=== PATIENT | female | born 1975 | race African-American/Black ===

== ENCOUNTER 2016-12-16 22:31 | Emergency (ER) | payer OTHER ==
[2016-12-16 22:52] VITALS: BP 124/80; PULSE 96; TEMP 98.7; BMI 27.1
[2016-12-16] MEDS ORDERED: PANTOPRAZOLE SODIUM 40 MG in SODIUM CHLORIDE 100 ML IVPB ONE (23:12)
[2016-12-16] MEDS ORDERED: SODIUM CHLORIDE 500 ML IV STA (23:12)
[2016-12-16] MEDS ORDERED: ONDANSETRON 4 MG/2 ML VIAL IVPB ONE (23:12)
[2016-12-16] MEDS ORDERED: FAMOTIDINE 20 MG/50 ML IVPB 50 ML IVPB ONE ×2 (23:12→23:44)
[2016-12-16] MEDS ORDERED: ONDANSETRON 4 MG/2 ML VIAL ONE (23:44)
[2016-12-16] MEDS ORDERED: PANTOPRAZOLE SODIUM 100 ML IVPB ONE (23:44)
[2016-12-16 23:50] LABS: URINE APPEARANCE CLEAR; URINE BILIRUBIN NEGATIVE (NEGATIVE); URINE BLOOD 1+ (NEGATIVE); URINE COLOR STRAW; URINE GLUCOSE (UA) NEGATIVE (NEGATIVE); URINE KETONE 1+ (NEGATIVE); URINE NITRITE NEGATIVE (NEGATIVE); URINE PROTEIN NEGATIVE (NEGATIVE); URINE UROBILINOGEN NEGATIVE mg/dL (0.2-1.0)
[2016-12-16 23:58] LABS: URINE LEUK ESTERASE 1+ (NEGATIVE)
[2016-12-17] MEDS ORDERED: PANTOPRAZOLE SODIUM 100 ML IVPB ONE (00:02)
[2016-12-17] MEDS ORDERED: FAMOTIDINE 20 MG/50 ML IVPB 50 ML IVPB ONE (00:02)
[2016-12-17] MEDS ORDERED: ONDANSETRON 4 MG/2 ML VIAL ONE (00:02)
[2016-12-17 00:04] LABS: CALCIUM OXALATE CRYSTALS RARE /hpf (NONE SEEN); URINE BACTERIA RARE /hpf (NONE SEEN); URINE RBC 1 /hpf (0-3); URINE WBC 2 /hpf (3-5)
[2016-12-17 00:12] LABS: BASOPHIL 0.4 % (0-2.0); EOSINOPHIL 5.5 % (0-4.5); MCH 29.9 pg (25.7-33.7); MCHC 33.2 g/dl (32.0-36.0); MEAN CELL VOLUME 90.1 fl (80-96); MEAN PLT VOLUME 8.6 fl (7.5-11.1); NEUTROPHILS 54.3 % (42.8-82.8); PLATELET COUNT 231 K/MM3 (134-434); RDW 14.1 % (11.6-15.6); WHITE BLOOD COUNT 4.9 K/mm3 (4.0-10.0)
[2016-12-17 00:38] LABS: ALBUMIN 3.5 g/dl (3.4-5.0); AMYLASE 64 U/L (25-115); ANION GAP 9 (8-16); BILIRUBIN,TOTAL 0.6 mg/dL (0.2-1.0); CALCIUM 8.8 mg/dL (8.5-10.1); CO2 23 mmol/L (21-32); CREATININE 0.7 mg/dL (0.55-1.02); GLUCOSE,RANDOM 88 mg/dL (74-106); SGPT/ALT 15 U/L (12-78)
[2016-12-17 00:39] LABS: ALK PHOS 50 U/L (45-117); TOT PROT 7.1 g/dl (6.4-8.2)
[2016-12-17 00:47] LABS: SGOT/AST 18 U/L (15-37)
--- NOTE | 2016-12-17 01:14 | PDOC ---
History of Present Illness - General Chief Complaint: Pain Stated Complaint: CHEST TIGHTNESS Time Seen by Provider: 12/16/16 23:06 History Source: Patient Exam Limitations: No Limitations - History of Present Illness Initial Comments: 12/17/16 01:05 41yo Female patient w/ PmHx: IBS, Lactose intolerance, anxiety presents to ED c/ o fluttering feeling in chest, followed by SOB and stomach w/ funny feeling. Patient states symptoms began around 930pm last night. While in ED patient reports symptoms improved. She denies n/v/d, back pain, CP, diff breathing, fever, cough, congestion, or any other complaints at this time. LNMP: Dec 02. Severity: moderate Modifying Factors: worse with: cold therapy, eating, immobilization, medication , movement, rest, other Associated Symptoms: denies: denies symptoms, chest pain, cough, diaphoresis, fever/chills, headaches, loss of appetite, malaise, nausea/vomiting, rash, seizure, shortness of breath, syncope, weakness, other Past History - Travel Traveled outside of the country in the last 30 days: No Close contact w/someone who was outside of country & ill: No - Past Medical History Allergies/Adverse Reactions: Allergies Allergy/AdvReac Type Severity Reaction Status Date / Time No Known Allergies Allergy Verified 12/16/16 22:48 Home Medications: Ambulatory Orders Escitalopram Oxalate [Lexapro] 10 mg PO DAILY #30 tablet 05/05/12 Ranitidine [Zantac -] 150 mg PO BID #30 tablet 12/17/16 Thyroid Disease: Yes - Immunization History Immunization Up to Date: No - Suicide/Smoking/Psychosocial Hx Smoking Status: No Smoking History: Current every day smoker Have you smoked in the past 12 months: No Number of Cigarettes Smoked Daily: 0 Information on smoking cessation initiated: No Hx Alcohol Use: No Drug/Substance Use Hx: No Substance Use Type: None Review of Systems - Review of Systems Able to Perform ROS?: Yes Is the patient limited [place] proficient: No Constitutional: No: Chills, Fever HEENTM: Yes: Throat Pain. No: Throat Swelling, Difficulty Swallowing, Mouth Swelling Respiratory: Yes: Shortness of Breath. No: Cough, Wheezing Cardiac (ROS): Yes: Irregular Heart Rate. No: Chest Pain, Lightheadedness, Palpitations, Syncope, Chest Tightness ABD/GI: No: Diarrhea, Nausea, Poor Appetite, Poor Fluid Intake, Vomiting, Abdominal cramping All Other Systems: Reviewed and Negative *Physical Exam - Vital Signs Last Vital Signs Temp Pulse Resp BP Pulse Ox 98.7 F 96 H 14 124/80 100 12/16/16 22:48 12/16/16 22:48 12/16/16 22:48 12/16/16 22:48 12/16/16 22:48 - Physical Exam General Appearance: Yes: Nourished, Appropriately Dressed. No: Apparent Distress, Mild Distress, Moderate Distress, Severe Distress Neck: positive: Trachea midline, Supple. negative: Lymphadenopathy (R), Lymphadenopathy (L) Respiratory/Chest: positive: Lungs Clear, Normal Breath Sounds. negative: Chest Tender, Respiratory Distress, Accessory Muscle Use, Labored Respiration, Rapid RR, Rhonchi, Stridor, Wheezing Cardiovascular: positive: Regular Rhythm, Regular Rate Gastrointestinal/Abdominal: positive: Soft, Increased Bowel Sounds. negative: Distended, Guarding, Rebound, Tenderness Musculoskeletal: positive: Normal Inspection. negative: CVA Tenderness Extremity: positive: Normal Capillary Refill, Normal Inspection, Normal Range of Motion. negative: Pedal Edema, Swelling, Calf Tenderness, Erythema, Inflammation Integumentary: positive: Normal Color, Dry, Warm Neurologic: positive: tile layer drainage II-XII NML intact, Fully Oriented, Alert, Normal Mood/ Affect, Normal Response, Motor Strength 5/5 ED Treatment Course - LABORATORY CBC & Chemistry Diagram: 12/16/16 23:59 12/16/16 23:59 - ADDITIONAL ORDERS Additional order review: Laboratory Results 12/16/16 12/16/16 23:59 23:45 Sodium 137 Potassium 3.8 Chloride 105 Carbon Dioxide 23 D Anion Gap 9 BUN 11 D Creatinine 0.7 D Creat Clearance w eGFR > 60 Random Glucose 88 Calcium 8.8 Total Bilirubin 0.6 D AST 18 ALT 15 Alkaline Phosphatase 50 Total Protein 7.1 Albumin 3.5 Total Amylase 64 Lipase 95 Urine Color Straw Urine Appearance Clear Urine pH 6.0 D Urine Protein Negative Urine Glucose (UA) Negative Urine Ketones 1+ H Urine Blood 1+ H Urine Nitrite Negative Urine Bilirubin Negative Urine Urobilinogen Negative Urine RBC 1 Urine WBC 2 Ur Epithelial Cells Rare Calcium Oxalate Crystal Rare Urine Bacteria Rare Urine HCG, Qual Negative 12/16/16 23:59 RBC 3.81 MCV 90.1 MCHC 33.2 RDW 14.1 MPV 8.6 D Neutrophils % 54.3 D Lymphocytes % 28.7 D Monocytes % 11.1 H Eosinophils % 5.5 H Basophils % 0.4 - Medications Given in the ED: ED Medications Discontinued Medications Generic Name Dose Route Start Last Admin Trade Name Fili PRN Reason Stop Dose Admin Pantoprazole Sodium 40 mg/ 100 mls @ 200 mls/hr 12/16/16 23:12 12/17/16 00:04 Sodium Chloride IVPB 12/16/16 23:41 200 mls/hr ONCE ONE Administration Famotidine/Sodium Chloride 50 mls @ 100 mls/hr 12/16/16 23:12 12/17/16 00:04 Pepcid 20 Mg Premixed Ivpb - IVPB 12/16/16 23:41 100 mls/hr ONCE ONE Administration Sodium Chloride 500 mls @ 500 mls/hr 12/16/16 23:12 12/17/16 00:05 Normal Saline - IV 12/17/16 00:11 500 mls/hr ASDIR STA Administration Ondansetron HCl 4 mg 12/16/16 23:12 12/17/16 00:38 Zofran Injection IVPB 12/16/16 23:13 Not Given ONCE ONE *DC/Admit/Observation/Transfer Diagnosis at time of Disposition: Gastroesophageal reflux disease Qualifiers: Esophagitis presence: without esophagitis Qualified Code(s): K21.9 - Gastro- esophageal reflux disease without esophagitis - Discharge Dispostion Disposition: HOME Condition at time of disposition: Stable Admit: No - Prescriptions Prescriptions: Ranitidine [Zantac -] 150 mg PO BID #30 tablet - Patient Instructions Printed Discharge Instructions: DI for Gastroesophageal Reflux Disease (GERD), GERD Diet Additional Instructions: Follow up with your front end drupal developer as discussed, or call Dr. Galvez to schedule appointment for evaluation. Take medications as prescribed. Return if any concerns for further evaluation. Print Language: LATVIAN
--- NOTE | 2016-12-17 09:12 | EKG ---
Test Reason : Blood Pressure : / mmHG Vent. Rate : 087 BPM Atrial Rate : 087 BPM P-R Int : 140 ms QRS Dur : 080 ms QT Int : 378 ms P-R-T Axes : 070 068 042 degrees QTc Int : 454 ms NORMAL SINUS RHYTHM possible left atrial enlargement Confirmed by ANGELLA GALVAN MD ([id number]) on 12/17/2016 9:12:38 AM Referred By: Confirmed By:ANGELLA GALVAN MD
[2016-12-17 12:56] LABS: THYROID STIMULATING HORMONE 1.38 uIU/ml (0.358-3.74)
== END 2016-12-17 04:16 | disposition home or self-care (01) ==
LOC: JER 22:31
PROC: 3E033GC Introduction of Other Therapeutic Substance into Peripheral Vein, Percutaneous Approach (ICD-10-PCS; principal; 2016-12-16)
PROC: 3E033GC Introduction of Other Therapeutic Substance into Peripheral Vein, Percutaneous Approach (ICD-10-PCS; 2016-12-16)
DX: K21.9 Gastro-esophageal reflux disease without esophagitis (principal)
CPT/HCPCS: 36415; 76705-TC; 80053; 81003; 81015; 82150; 83690; 84443; 84703; 85025; 93005; 93010; 99283-25

== ENCOUNTER 2016-12-28 09:50 | Day surgery (SDC) | payer OTHER ==
[2016-12-28 10:46] VITALS: BMI 27.1
[2016-12-28] MEDS ORDERED: PROPOFOL 20 ML ONE (11:22)
[2016-12-28 11:54] VITALS: TEMP 98.7
[2016-12-28 13:15] VITALS: BP 128/72; PULSE 67
--- NOTE | 2016-12-29 12:57 | PATH ---
Surgical Pathology Report Patient Name: LISA MELCHOR [facility]. Rec. #: [id number] /Age/Gender: 1975 (Age: 41) / F Account: [id number] Location: [facility]-ENDOSCOPY Taken: 12/28/2016 Received: 12/28/2016 Reported: 12/29/2016 Physicians: Rafael Saldaña M.D. Specimen(s) Received A: BX DUODENUM B: BX BODY Clinical History Persistent heart burn despite H brenda Erythema body Final Diagnosis A. DUODENUM, BIOPSY: DUODENAL MUCOSA WITH NO PATHOLOGIC CHANGES. NO HISTOLOGIC EVIDENCE OF GLUTEN SENSITIVE ENTEROPATHY (CELIAC SPRUE) IDENTIFIED. B. STOMACH, BODY, BIOPSY: GASTRIC FUNDIC MUCOSA WITH NO PATHOLOGIC CHANGES. IMMUNOSTAIN FOR H. PYLORI IS NEGATIVE. Electronically Signed Aldair Collazo M.D. Gross Description A. Received in formalin, labeled "biopsy duodenum" are 2 wells, irregular portions of soft tissue measuring 0.3 and 0.4 cm. in greatest dimension. The specimens are submitted in toto in one cassette. B. Received in formalin, labeled "biopsy body" is a wells, irregular portion of soft tissue measuring 0.6 cm. in greatest dimension. The specimen is submitted in toto in one cassette. DL/12/28/2016 saudi12/28/2016
== END 2016-12-28 13:15 | disposition home or self-care (01) ==
LOC: JASU-ENDO 09:50
PROVIDERS: ATTEND Internal Medicine Gastroenterology
PROC: 0DB68ZX Excision of Stomach, Via Natural or Artificial Opening Endoscopic, Diagnostic (ICD-10-PCS; 2016-12-28)
PROC: 0DB98ZX Excision of Duodenum, Via Natural or Artificial Opening Endoscopic, Diagnostic (ICD-10-PCS; principal; 2016-12-28 10:45)
DX: K21.9 Gastro-esophageal reflux disease without esophagitis (principal)
CPT/HCPCS: 84703; 88305-TC; 88342-TC

== ENCOUNTER 2017-01-04 09:28 | Day surgery (SDC) | payer OTHER ==
[2017-01-03 15:00] VITALS: BMI 27.1
[2017-01-04] MEDS ORDERED: LIDOCAINE HCL/PF 2% SDV 5ML VIAL ONE (11:08)
[2017-01-04] MEDS ORDERED: PROPOFOL 20 ML ONE ×3 (11:08→11:24)
[2017-01-04 11:51] VITALS: TEMP 98
[2017-01-04 12:52] VITALS: BP 101/70; PULSE 65
--- NOTE | 2017-01-05 11:23 | PATH ---
Surgical Pathology Report Patient Name: LISA MELCHOR [facility]. Rec. #: [id number] /Age/Gender: 1975 (Age: 41) / F Account: [id number] Location: [facility]-ENDOSCOPY Taken: 01/04/2017 Received: 01/04/2017 Reported: 01/05/2017 Physicians: Rafael Saldaña M.D. Specimen(s) Received BX TERMINAL ILEUM Clinical History Constipation Nodular mucosa terminal ileum, redundant sigmoid Final Diagnosis TERMINAL ILEUM, BIOPSY: SMALL INTESTINAL MUCOSA WITH FOLLICULAR HYPERPLASIA OF MUCOSA ASSOCIATED LYMPHOID TISSUE. NO ACTIVE INFLAMMATION IDENTIFIED. Comment: The findings may indicate some form of antigenic stimulation to the GI tract. Electronically Signed Aldair Collazo M.D. Gross Description Received in formalin, labeled "biopsy terminal ileum" are 3 wells, irregular portions of soft tissue ranging from 0.3-0.4 cm. in greatest dimension. The specimens are submitted in toto in one cassette. 01/04/201701/04/2017
== END 2017-01-04 12:52 | disposition home or self-care (01) ==
LOC: JASU-ENDO 09:28
PROVIDERS: ATTEND Internal Medicine Gastroenterology
PROC: 0DJD8ZZ Inspection of Lower Intestinal Tract, Via Natural or Artificial Opening Endoscopic (ICD-10-PCS; principal; 2017-01-04 10:00)
DX: K59.00 Constipation, unspecified (principal)
CPT/HCPCS: 84703; 88305-TC

== ENCOUNTER 2018-03-09 15:43 | Emergency (ER) | payer OTHER ==
--- NOTE | 2018-03-09 16:02 | PDOC ---
Rapid Medical Evaluation Time Seen by Provider: 03/09/18 15:56 Medical Evaluation: Allergies Allergy/AdvReac Type Severity Reaction Status Date / Time jimenez flavor Allergy Verified 01/03/17 15:00 03/09/18 15:56 I have performed a brief in-person evaluation of this patient The patient presents with a chief complaint of: 2-3 months of pinkish fleshy vaginal discharge today with 1 day of L sided-lower pelvic pain/pressure. She has an Esure for contraception and is concerned for ectopic , no h/ o ectopic LMP Feb 21 I have ordered the following: UCG, UA The patient will proceed to the ED for further evaluation Discharge Disposition - Diagnosis Pelvic pain - Referrals - Patient Instructions - Post Discharge Activity
[2018-03-09 16:03] VITALS: BP 117/57; PULSE 94; TEMP 98.6; BMI 25.0
--- NOTE | 2018-03-09 16:55 | PDOC ---
History of Present Illness - General Chief Complaint: Pain Stated Complaint: PAIN Time Seen by Provider: 03/09/18 15:56 - History of Present Illness Initial Comments: 03/09/18 16:52 42 yo , aborta 5, LMP 01/21/18, with h/o GERD who p/w pelvic pain. Patient reports 1 week of irregular, pink, vaginal discharge "spotting," noticed when urinating or defecating. Denies hematuira, or BPR. Also endorses one month of sharp, shooting, intermittent, pelvic pain, and dyspareurnia. Patient denies h/ o similar symptoms. 1-2 months intermittent lightheadedness, with no identifiable triggers or alleviators, lasting for seconds to minutes and resolving. Patient denies vision change, LOC, OVIEDO, N/V, F/C, CP, SOB, urinary complaints, BPR, hematuria, diarrhea, constipation, weakness, sensory changes. PMHx: as noted above. ROS: as noted SHx: Denies tobacco use, Etoh, IVDA. Sexually active with one sexual partner. Recently treated for BV with Flagyl ( 03/06/18). Patient with essure contraception. Allergies: NKDA Past History - Past Medical History Allergies/Adverse Reactions: Allergies Allergy/AdvReac Type Severity Reaction Status Date / Time jimenez flavor Allergy Verified 03/09/18 15:57 Home Medications: Ambulatory Orders Escitalopram Oxalate [Lexapro -] 10 mg PO DAILY #30 tablet 05/05/12 Ibuprofen [Advil -] 400 mg PO PRN 12/28/16 Omeprazole 40 mg PO DAILY 01/03/17 metroNIDAZOLE [Flagyl -] 250 mg PO TID 01/03/17 Clotrimazole 14 gm TP ONCE #1 cream..g. 03/09/18 COPD: No GI Disorders: Yes Thyroid Disease: Yes - Immunization History Immunization Up to Date: No - Suicide/Smoking/Psychosocial Hx Smoking Status: No Smoking History: Never smoked Have you smoked in the past 12 months: No Number of Cigarettes Smoked Daily: 0 Hx Alcohol Use: No Drug/Substance Use Hx: No Substance Use Type: None Review of Systems - Review of Systems Comments:: 03/09/18 16:53 GENERAL/CONSTITUTIONAL: No fever or chills. No weakness. HEAD, EYES, EARS, NOSE AND THROAT: No change in vision. No ear pain or discharge. No sore throat. CARDIOVASCULAR: No chest pain or shortness of breath RESPIRATORY: No cough, wheezing, or hemoptysis. GASTROINTESTINAL: No nausea, vomiting, diarrhea or constipation. GENITOURINARY: + Pelvic pain, and dyspareurnia. No dysuria, frequency, or change in urination. MUSCULOSKELETAL: No joint or muscle swelling or pain. No neck or back pain. SKIN: No rash NEUROLOGIC: No headache, vertigo, loss of consciousness, or change in strength/ sensation. ENDOCRINE: No increased thirst. No abnormal weight change HEMATOLOGIC/LYMPHATIC: No anemia, easy bleeding, or history of blood clots. ALLERGIC/IMMUNOLOGIC: No hives or skin allergy. *Physical Exam - Vital Signs Last Vital Signs Temp Pulse Resp BP Pulse Ox 98.6 F 94 H 16 117/57 L 100 03/09/18 15:59 03/09/18 15:59 03/09/18 15:59 03/09/18 15:59 03/09/18 15:59 - Physical Exam Comments: 03/09/18 16:53 GENERAL: Awake, alert, and fully oriented, in no acute distress HEAD: No signs of trauma, normocephalic, atraumatic EYES: PERRLA, EOMI, sclera anicteric, conjunctiva clear ENT: Hearing grossly normal, nares patent, oropharynx clear without exudates. Moist mucosa NECK: Normal ROM, supple, no lymphadenopathy, JVD, or masses LUNGS: No distress, speaks full sentences, clear to auscultation bilaterally HEART: Regular rate and rhythm, normal S1 and S2, no murmurs, rubs or gallops, peripheral pulses normal and equal bilaterally. ABDOMEN: + L>R lower abdominal ttp, and suprpaubic ttp. Soft, nontender, normoactive bowel sounds. No guarding, no rebound. No masses GENITOURINARY: Nml appearing external genitalia. thick, white, curd like discharge, with absent vaginal blood in vault. Absent CMT on BM exam. Absent adenexal ttp. Absent lesions. Cervical os closed. EXTREMITIES : Normal inspection, Normal range of motion, no edema. No clubbing or cyanosis. SKIN: Warm, Dry, normal turgor, no rashes or lesions noted Moderate Sedation - Procedure Monitoring Vital Signs: Procedure Monitoring Vital Signs Temperature 98.6 F 03/09/18 15:59 Pulse Rate 94 H 03/09/18 15:59 Respiratory Rate 16 03/09/18 15:59 Blood Pressure 117/57 L 03/09/18 15:59 O2 Sat by Pulse Oximetry (%) 100 03/09/18 15:59 ED Treatment Course - LABORATORY CBC & Chemistry Diagram: 03/09/18 17:44 03/09/18 17:44 Medical Decision Making - Medical Decision Making 03/09/18 17:19 42 yo , aborta 5, LMP 01/21/18, with h/o GERD who p/w pelvic pain. VSS, AF, A&OX3. + Left lower abdominal ttp. + thick curd white vaginal discharge n physical exam ( chaperoned by Nurse Linda Juarez). Will consider related abdominal pain (ectopic , implantation bleeding), threatened infectious etiology ( PID, TOA, BV, cystitis), adenexal disorders ( ovarian cyst rupture, ovarian), torsion), DUB, diverticulitis, colitis. ED Course: CBC, CMP, UA, UCx, HCG Fluconazole 150 mg PO 03/09/18 18:21 UA: Neg HCG: Neg 03/09/18 19:09 CBC, CMP: Unremarkable HCG: Neg UA: Neg 03/09/18 21:07 TVUS: No evidence of torsion. 03/09/18 21:08 Pt. pain improved. Stable for d/c with return precautions. Advised to f/u with Quality Manager. *DC/Admit/Observation/Transfer Diagnosis at time of Disposition: Pelvic pain - Prescriptions Prescriptions: Clotrimazole 14 gm TP ONCE #1 cream..g. - Referrals Referrals: Dirk Osman MD [Primary Care Provider] - Emily Campbell MD [Staff Physician] - - Patient Instructions Printed Discharge Instructions: DI for Vaginal Yeast Infection, DI for Uterine Fibroids Additional Instructions: Please return to the emergency department with any new or worsening symptoms or concerns. Please follow up with your primary care physician within 72 hours. Please follow up with Quality Manager within 72 hours. - Post Discharge Activity - Attestations Physician Attestion: 03/09/18 16:53 I attest to the information provided in this note.
[2018-03-09 17:06] LABS: URINE APPEARANCE CLEAR; URINE BILIRUBIN NEGATIVE (<2.0 mg/dL); URINE COLOR STRAW; URINE GLUCOSE (UA) NEGATIVE (NEGATIVE); URINE KETONE 1+ (NEGATIVE); URINE LEUK ESTERASE NEGATIVE (NEGATIVE); URINE NITRITE NEGATIVE (NEGATIVE); URINE PROTEIN NEGATIVE (NEGATIVE); URINE UROBILINOGEN NEGATIVE mg/dL (0.2-1.0)
[2018-03-09] MEDS ORDERED: FLUCONAZOLE 50 MG TABLET PO ONE (18:20)
[2018-03-09 18:26] LABS: BASO % 0.4 % (0-2.0); EOS % 4.7 % (0-4.5); HEMATOCRIT 32.6 % (32.4-45.2); HEMOGLOBIN 10.7 GM/dL (10.7-15.3); LYMPH % 41.5 % (8-40); MCH 27.5 pg (25.7-33.7); MCHC 32.8 g/dl (32.0-36.0); MEAN CELL VOLUME 83.9 fl (80-96); MEAN PLT VOLUME 8.7 fl (7.5-11.1); MONO % 8.2 % (3.8-10.2); NEUT % 45.2 % (42.8-82.8); PLATELET COUNT 305 K/MM3 (134-434); RBC 3.88 M/mm3 (3.60-5.2); RDW 17.5 % (11.6-15.6); WHITE BLOOD COUNT 5.2 K/mm3 (4.0-10.0)
[2018-03-09] MEDS ORDERED: FLUCONAZOLE 100 MG TABLET (UD) ONE (18:34)
[2018-03-09 18:58] LABS: ALBUMIN 3.9 g/dl (3.4-5.0); ALK PHOS 49 U/L (45-117); ANION GAP 9 MMOL/L (8-16); BILIRUBIN,TOTAL 0.4 mg/dL (0.2-1); BLOOD UREA NITROGEN 11 mg/dL (7-18); CALCIUM 9.1 mg/dL (8.5-10.1); CHLORIDE 103 mmol/L (98-107); CO2 24 mmol/L (21-32); CREATININE 0.8 mg/dL (0.55-1.3); GLUCOSE,RANDOM 79 mg/dL (74-106); POTASSIUM 3.6 mmol/L (3.5-5.1); SGOT/AST 20 U/L (15-37); SGPT/ALT 17 U/L (13-61); SODIUM 136 mmol/L (136-145); TOT PROT 8.2 g/dl (6.4-8.2)
--- NOTE | 2018-03-09 20:04 | PDOC ---
Attending Attestation - HPI HPI: 03/09/18 20:12 The patient is a 42 year old female, with a significant PMH of GERD, who presents to the emergency department with 1 month of intermittent pelvic pain. The patient also endorses 1 week of irregular pink colored vaginal discharge/ spotting after urinating or defecating. The patient also endorses 1-2 months of intermittent lightheadedness. The patient denies chest pain, shortness of breath, or headache. Denies fever, chills, nausea, vomit, diarrhea and constipation. Denies dysuria, frequency, urgency and hematuria. Allergies: jimenez flavor Documentation prepared by Abdulkadir Carson, acting as medical numerical control operator for Shar Grant MD. <Abdulkadir Carson - Last Filed: 03/09/18 20:12> - Resident Resident Name: Quentin Rodriguez - ED Attending Attestation I have performed the following: I have examined & evaluated the patient, The case was reviewed & discussed with the resident, I agree w/resident's findings & plan, Exceptions are as noted - Physicial Exam PE: 03/10/18 02:33 Patient is awake and alert, well-appearing, in no distress Normocephalic and atraumatic PERRLA, EOMI, CTA, abdomen is soft, nontender, nondistended - Medical Decision Making 03/10/18 02:33 42-year-old well-appearing female presents with lower pelvic pain for the past several months, intermittent, associated with reddish discharge in the day of arrival. Patient is afebrile, with no CMT or adnexal tenderness. Transvaginal sounds shows fibroid. We'll treat for vaginal candidiasis and will discharge with MECHANICAL DEVELOPER PROVER follow-up. <Shar Grant - Last Filed: 03/10/18 02:34>
== END 2018-03-09 22:04 | disposition home or self-care (01) ==
LOC: JER 15:43
DX: R10.2 Pelvic and perineal pain (principal); K21.9 Gastro-esophageal reflux disease without esophagitis
CPT/HCPCS: 36415; 76830-TC; 80053; 81003; 84703; 85025; 87086; 87491; 87591; 99282-25

== ENCOUNTER 2020-11-28 10:43 | Emergency (ER) | payer OTHER ==
[2020-11-28 11:23] VITALS: BP 104/71; PULSE 84; TEMP 98.5; BMI 29.1
== END 2020-11-28 11:59 | disposition home or self-care (01) ==
LOC: JERFT 10:43
DX: R59.9 Enlarged lymph nodes, unspecified (principal)
CPT/HCPCS: 99283-25

== ENCOUNTER 2020-12-12 11:04 | Emergency (ER) | payer OTHER ==
[2020-12-12 11:18] VITALS: TEMP 97.3; BMI 28.6
[2020-12-12 13:16] LABS: BASO % 1.2 % (0-2.0); EOS % 5.1 % (0-4.5); HEMATOCRIT 35.9 % (32.4-45.2); HEMOGLOBIN 11.8 GM/dL (10.7-15.3); LYMPH % 40.9 % (8-40); MCH 29.1 pg (25.7-33.7); MCHC 32.9 g/dl (32.0-36.0); MEAN CELL VOLUME 88.5 fl (80-96); MEAN PLT VOLUME 8.5 fl (7.5-11.1); MONO % 9.2 % (3.8-10.2); NEUT % 43.6 % (42.8-82.8); PLATELET COUNT 278 10^3/uL (134-434); RBC 4.05 M/mm3 (3.60-5.2); RDW 14.1 % (11.6-15.6); WHITE BLOOD COUNT 5.8 K/mm3 (4.0-10.0)
[2020-12-12 13:19] LABS: CHLORIDE 106 mmol/L (98-107); SODIUM 136 mmol/L (136-145)
[2020-12-12 13:21] LABS: ALBUMIN 3.3 g/dl (3.4-5.0); ANION GAP 6 MMOL/L (8-16); BLOOD UREA NITROGEN 9.9 mg/dL (7-18); CALCIUM 8.8 mg/dL (8.5-10.1); CO2 24 mmol/L (21-32); GLUCOSE,RANDOM 75 mg/dL (74-106)
[2020-12-12 13:24] LABS: CREATININE 0.8 mg/dL (0.55-1.3); SGOT/AST 39 U/L (15-37); SGPT/ALT 18 U/L (13-61)
[2020-12-12 13:27] LABS: ALK PHOS 49 U/L (45-117); BILIRUBIN,TOTAL 0.4 mg/dL (0.2-1); TOT PROT 7.9 g/dl (6.4-8.2)
[2020-12-12 14:05] VITALS: BP 110/73; PULSE 74
== END 2020-12-12 14:05 | disposition home or self-care (01) ==
LOC: JER 11:04
DX: R07.9 Chest pain, unspecified (principal)
CPT/HCPCS: 36415; 71046-TC-FY; 80053; 82550; 82553; 84484; 85025; 93005; 93010; 99285-25

== ENCOUNTER 2021-01-27 04:22 | Day surgery (SDC) | payer OTHER ==
[2021-01-27] MEDS ORDERED: LIDOCAINE 1%/EPI 1:100000 (20 ML MULTI DOSE VIAL) ONE (07:38)
[2021-01-27] MEDS ORDERED: BACITRACIN 15 GM TUBE TOPICAL OINTMENT ONE (07:38)
[2021-01-27 07:43] VITALS: BMI 29.5
[2021-01-27] MEDS ORDERED: SUCCINYLCHOLINE CHLORIDE 200 MG/10 ML SYRINGE ONE (07:53)
[2021-01-27] MEDS ORDERED: PROPOFOL 20 ML ONE (07:53)
[2021-01-27] MEDS ORDERED: COCAINE HCL 4% TOPICAL SOLUTION 4 ML BOTTLE TP ONE ×2 (07:53→08:48)
[2021-01-27] MEDS ORDERED: MIDAZOLAM HCL 2 MG/2 ML SINGLE DOSE VIAL ONE (07:54)
[2021-01-27] MEDS ORDERED: DEXAMETHASONE SOD PHOSPHATE 4 MG/1 ML VIAL ONE (08:43)
[2021-01-27] MEDS ORDERED: ceFAZolin SODIUM 1 GM VIAL ONE (08:48)
[2021-01-27] MEDS ORDERED: LIDOCAINE 1%/EPI 1:100000 (20 ML MULTI DOSE VIAL) IJ ONE (08:48)
[2021-01-27] MEDS ORDERED: ceFAZolin SODIUM 1 GM VIAL IVPB ONE (08:51)
[2021-01-27] MEDS ORDERED: ACETAMINOPHEN INJECTION 100 ML IVPB ONE (09:24)
[2021-01-27] MEDS ORDERED: KETOROLAC TROMETHAMINE 30 MG/1 ML VIAL ONE (09:37)
[2021-01-27] MEDS ORDERED: TRIAMCINOLONE ACET 40MG/1ML VIAL ONE (09:37)
[2021-01-27] MEDS ORDERED: TRIAMCINOLONE ACET 40MG/1ML VIAL IJ ONE (09:39)
[2021-01-27] MEDS ORDERED: BACITRACIN 15 GM TUBE TOPICAL OINTMENT TP ONE (09:40)
[2021-01-27] MEDS ORDERED: ONDANSETRON 4 MG/2 ML VIAL IVPUSH PRN (10:11)
[2021-01-27] MEDS ORDERED: LACTATED RINGERS SOLUTION 1,000 ML IV SCH (10:15)
[2021-01-27 12:58] VITALS: BP 111/70; PULSE 94; TEMP 97.7
== END 2021-01-27 13:15 | disposition home or self-care (01) ==
LOC: JASUSAT 04:22
PROVIDERS: ATTEND Otolaryngology
PROC: 09BU8ZZ Excision of Right Ethmoid Sinus, Via Natural or Artificial Opening Endoscopic (ICD-10-PCS; 2021-01-27)
PROC: 8E09XBZ Computer Assisted Procedure of Head and Neck Region (ICD-10-PCS; 2021-01-27)
PROC: 09SL8ZZ Reposition Nasal Turbinate, Via Natural or Artificial Opening Endoscopic (ICD-10-PCS; 2021-01-27)
PROC: 09BV8ZZ Excision of Left Ethmoid Sinus, Via Natural or Artificial Opening Endoscopic (ICD-10-PCS; principal; 2021-01-27 08:00)
DX: J32.8 Other chronic sinusitis (principal); J33.8 Other polyp of sinus; J34.3 Hypertrophy of nasal turbinates
CPT/HCPCS: 88304-TC; 94760; J0131

== ENCOUNTER 2021-05-27 13:10 | Emergency (ER) | payer OTHER ==
[2021-05-27 13:18] VITALS: BP 102/61; PULSE 103; TEMP 98.6; BMI 30.5
[2021-05-27] MEDS ORDERED: MAGNESIUM CITRATE 300 ML BOTTLE PO ONE (14:03)
[2021-05-27] MEDS ORDERED: SODIUM PHOSPHATE/NA BIPHOS 133 ML ENEMA PR ONE (14:03)
[2021-05-27] MEDS ORDERED: LACTULOSE 20 GM/30 ML UDC (FOR ORAL USE ONLY) PO ONE (14:03)
[2021-05-27] MEDS ORDERED: LACTULOSE 20 GM/30 ML UDC (FOR ORAL USE ONLY) ONE (14:12)
[2021-05-27] MEDS ORDERED: MAGNESIUM CITRATE 300 ML BOTTLE ONE (14:12)
== END 2021-05-27 16:30 | disposition home or self-care (01) ==
LOC: JER 13:10
DX: K59.00 Constipation, unspecified (principal)
CPT/HCPCS: 74019-TC-FY; 99283-25

== ENCOUNTER 2022-07-08 16:33 | Emergency (ER) | payer OTHER ==
[2022-07-08 16:59] VITALS: BMI 29.2
[2022-07-08] MEDS ORDERED: ACETAMINOPHEN 500 MG TABLET (FP) PO ONE (18:02)
[2022-07-08] MEDS ORDERED: IBUPROFEN 600 MG TABLET (FP) PO ONE ×2 (18:02→18:09)
[2022-07-08] MEDS ORDERED: ACETAMINOPHEN 500 MG TABLET (FP) ONE (18:09)
[2022-07-08 20:22] LABS: THROAT:GRP A STREP DETECTED (NOTDETECTED)
[2022-07-08] MEDS ORDERED: AMOXICILLIN 500 MG CAPSULE (FP) PO ONE (20:49)
[2022-07-08] MEDS ORDERED: AMOXICILLIN 500 MG CAPSULE (FP) ONE (20:58)
[2022-07-08 21:20] VITALS: BP 110/72; PULSE 97; RESP 19; TEMP 98.6
== END 2022-07-08 21:20 | disposition home or self-care (01) ==
LOC: JERFT 16:33
DX: J02.0 Streptococcal pharyngitis (principal); R07.0 Pain in throat; R51.9 Headache, unspecified; M79.10 Myalgia, unspecified site; Z20.822 Contact with and (suspected) exposure to COVID-19
CPT/HCPCS: 0241U-QW; 87651; 99283-25